=== PATIENT | female | born 1950 | race Caucasian/White ===

== ENCOUNTER → 2017-07-22 | Outpatient (CLI) | payer MEDICARE ==
--- NOTE | 2017-07-22 17:59 | EKG ---
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
== END ==
LOC: M.CRD 09:33
DX: Z01.818 Encounter for other preprocedural examination (principal); I10 Essential (primary) hypertension